=== PATIENT | female | born 1960 | race Caucasian/White ===

== ENCOUNTER 2024-08-26 07:05 | Inpatient (IN) | payer OTHER ==
[~2024-08-26] VITALS: Ht 167.6 cm; Wt 90.0 kg
--- NOTE | 2024-08-26 07:59 | ED.PDOC ---
General HPI Comments 64 year old female presents to the ED with a chief complaint of RT flank pain onset today around 03:00. Patient states she woke up today around 03:00 experiencing RT flank pain radiating to RT low back as well as 3 episodes of nausea/vomiting, urinary urgency. Patient has experienced similar pain in the past when she was passing kidney stone. Patient states she took Ativan around 04:00. PMHx of kidney stones. Denies chest pain, shortness of pain, dysuria, hematuria, diarrhea, constipation, fever, chills. No other symptoms or modifying factors present at this time. 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 Family History Family History: Reviewed,noncontributory to illness, No family hx of Cancer, No family hx of DM, No family hx of Heart stephie, No family hx of HTN, No family hx ofKidney stephie, No family hx of Liver stephie, No family hx of Lung stephie, No family hx of Stroke Social History Smoker: Non-Smoker Alcohol: Denies ETOH Use Drugs: Denies Drug Use Lives In: Home Constitutional: denies: chills, diaphoresis, fatigue, fever, malaise, sweats, weakness, others EENTM: denies: blurred vision, double vision, ear bleeding, ear discharge, ear drainage, ear pain, ear ringing, eye pain, eye redness, hearing loss, mouth pain, mouth swelling, nasal discharge, nose bleeding, nose congestion, nose pain, photophobia, tearing, throat pain, throat swelling, voice changes, others Respiratory: denies: cough, hemoptysis, orthopnea, SOB at rest, shortness of breath, SOB with excertion, stridor, wheezing, others Cardiovascular: denies: chest pain, dizzy spells, diaphoresis, Dyspnea on exertion, edema, irregular heart beat, left arm pain, lightheadedness, palpitations, PND, syncope, others Gastrointestinal: reports: nausea, vomiting; denies: abdomen distended, abdominal pain, blood streaked bowels, constipated, diarrhea, dysphagia, difficulty swallowing, hematemesis, melena, poor appetite, poor fluid intake, rectal bleeding, rectal pain, others Genitourinary: reports: flank pain, urgency; denies: abnormal vagina bleeding, burning, dyspareunia, dysuria, frequency, hematuria, incontinence, pain, , vagina discharge, others Neurological: denies: dizziness, fainting, headache, left sided numbness, left sided weakness, numbness, paresthesia, pre-existing deficit, right sided numbnes s, right sided weakness, seizure, speech problems, tingling, tremors, weakness, others Musculoskeletal: reports: back pain; denies: gout, joint pain, joint swelling, muscle pain, muscle stiffness, neck pain, others Integumetry: denies: bruises, change in color, change in hair/nails, dryness, laceration, lesions, lumps, rash, wounds, others Allergic/Immunocompromised: denies: Difficulty Healing, Frequent Infections, Hives, Itching, others Hematologic/Lymphatic: denies: anemia, blood clots, easy bleeding, easy bruising, swollen glands, others Endocrine: denies: excessive hunger, excessive sweating, excessive thirst, excessive urination, flushing, intolerance to cold, intolerance to heat, unexplained weight gain, unexplained weight loss, others Psychiatric: denies: anxiety, bipolar disorder, depression, hopeless, panic disorder, schizophrenia, sleepless, suicidal, others All Other Systems: Reviewed and Negative Physical Exam General Appearance: No Apparent Distress, Normal HEENT: Normal ENT Inspection, Pharynx Normal, TMs Normal Neck: Full Range of Motion, Non-Tender, Normal, Normal Inspection Respiratory: Chest Non-Tender, Lungs Clear, No Accessory Muscle Use, No Respiratory Distress, Normal Breath Sounds Cardiovascular: No Edema, No JVD, No Murmur, No Gallop, Normal Peripheral Pulses, Regular Rate/Rhythm Breast Exam: Deferred Gastrointestinal: No Organomegaly, Non Tender, No Pulsatile Mass, Normal Bowel Sounds, Soft Genitalia: Deferred Pelvic: Deferred Rectal: Deferred Extremities: No calf tenderness, Normal capillary refill, Normal inspection, Normal range of motion, Non-tender, No pedal edema Musculoskeletal : Apperance: Normal Neurologic: Alert, cmm inspector II-XII nml as Tested, No Motor Deficits, Normal Affect, Normal Mood, No Sensory Deficits Cerebellar Function: Normal Reflexes: Normal Skin: Dry, Normal Color, Warm Lymphatic: No Adenopathy Was a procedure done? Was a procedure done?: No Differential Diagnosis Kidney stone (Female): Appendicitis, Pancreatitis, Renal failure, Strain, Urinary obstruction, Urolithiasis Kidney stone (Male): N/A Penile/Scrotal: N/A Urinary Problem (Male): N/A Urinary Problem (Female): Pyelonephritis, Urinary retention X-Ray, Labs, Meds, VS Vital Signs Date Time Temp Pulse Resp B/P (MAP) Pulse Ox O2 Delivery O2 Flow Rate FiO2 08/26/24 09:30 65 17 98 Room Air* 0 21 08/26/24 09:30 98.1 65 17 153/63 (93) 98 98.1 08/26/24 07:27 52 08/26/24 07:25 98.1 68 19 147/62 (90) 98 98.1 Lab Test 08/26/24 08:17 08/26/24 07:24 Range/Units White Blood Count 11.2 H 4.4-10.8 10^3/uL Red Blood Count 4.40 4.0-5.20 10^6/uL Hemoglobin 13.0 12.2-16.2 g/dL Hematocrit 38.5 36.0-46.0 % Mean Corpuscular Volume 87.7 80.0-100.0 fL Mean Corpuscular Hemoglobin 29.7 28.0-32.0 pg Mean Corpuscular Hemoglobin Concent 33.9 32.0-36.0 g/dL Red Cell Distribution Width 14.5 H 11.8-14.3 % Platelet Count 276 140-450 10^3/uL Mean Platelet Volume 7.1 6.9-10.8 fL Neutrophils (%) (Auto) 84.4 H 37.0-80.0 % Lymphocytes (%) (Auto) 11.2 10.0-50.0 % Monocytes (%) (Auto) 4.1 0.0-12.0 % Eosinophils (%) (Auto) 0.1 0.0-7.0 % Basophils (%) (Auto) 0.2 0.0-2.0 % Neutrophils # (Auto) 9.5 H 1.6-8.6 10 ^3/uL Lymphocytes # (Auto) 1.3 0.4-5.4 10 ^3/uL Monocytes # (Auto) 0.5 0-1.3 10 ^3/uL Eosinophils # (Auto) 0 0-0.8 10 ^3/uL Basophils # (Auto) 0 0-0.2 10 ^3/uL Nucleated Red Blood Cells 0.0 % Sodium Level 137 136-145 mmol/L Potassium Level 3.4 L 3.5-5.1 mmol/L Chloride Level 104 98-107 mmol/L Carbon Dioxide Level 22 20-31 mmol/L Anion Gap 11 5-15 Blood Urea Nitrogen 16 9-23 mg/dL Creatinine 0.82 0.550-1.02 mg/dL Glomerular Filtration Rate Calc 80 >90 mL/min BUN/Creatinine Ratio 19.5 10.0-20.0 Serum Glucose 147 H 74-106 mg/dL Calcium Level 10.9 H 8.7-10.4 mg/dL Urine Color Colorless Yellow Urine Clarity Ex.turbid Clear Urine pH 8.0 5.0-9.0 Urine Specific [place] 1.013 1.001-1.035 Urine Protein Negative Negative Urine Ketones Negative Negative Urine Blood Trace H Negative /uL Urine Nitrite Negative Negative Urine Bilirubin Negative Negative Urine Urobilinogen Normal Negative mg/dL Urine Leukocyte Esterase 1+ Negative /uL Urine RBC 19 0 - 4 /hpf Urine Microscopic WBC 2 0-5 /HPF Urine Squamous Epithelial Cells Few <5 /hpf Urine Bacteria None seen None Seen /hpf Urine Glucose Normal Normal mg/dL Current Medications Medications (Trade) Dose Ordered Sig/Vu Route Start Time Stop Time Status Last Admin Ondansetron HCl (Zofran Po) 4 mg ONCE ONCE PO 08/26/24 09:45 08/26/24 09:46 DC 08/26/24 09:47 Acetaminophen/ Hydrocodone Bitart (Moran 5/325MG Tab) 1 tab ONCE ONCE PO 08/26/24 09:45 08/26/24 09:46 DC 08/26/24 09:47 Time of 1ST Reevaluation: 08:09 Reevaluation 1ST: Unchanged Patient Education/Counseling: Diagnosis, Treatment, Prognosis Family Education/Counseling: Diagnosis, Treatment, Prognosis Additional Information The following tests were ordered, and results were reviewed by me: EKG, BMP, CBC, UA Additional Information was gathered from interviewing the following independent historians: I discussed treatment and results with medical personnel and: Patient, Comprehensive systems review obtained and negative except for what is stated in the HPI. Departure 1 Departure Time of Disposition: 11:23 (Patient presented with abdominal pain that was concerning for possible appendicits, gastritis, cholecystitis, colitis, gastroenteritis, sbo, or orther possible surgical emergency. Data: 1. I ordered and reviewed the result of at least 3 labs including a CBC, BMP, and Urinalysis. 2. I independently interpreted the following tests: CT Abdoment and Pelvis is concerning for renal colic .Risk:This patient has a high risk of morbidity due to further diagnostic testing or treatment and may suffer from an acute abdominal process disorder. Workup reveals renal colic and patient should be admitted for further workup. and possible expert consultation. ) Impression: Primary Impression: Bilateral renal colic Additional Impression: Hydronephrosis Qualified Codes: N13.2 - Hydronephrosis with renal and ureteral calculous obstruction Disposition: ADMITTED INPATIENT Admit to: Med Surg Condition: Serious Critical Care Note Critical Care Time?: Yes Critical care comment: Intractable abdominal pain Authorized and Performed by: Isaak Garvey MD Total critical care time: Approximately 39 minutes Due to a high probability of clinically significant, life threatening deterioration, the patient required my highest level of preparedness to intervene emergently and I personally spent this critical care time directly and personally managing the patient. This critical care time included obtaining a history; examining the patient; pulse oximetry; ordering and review of studies; arranging urgent treatment with development of a management plan; evaluation of patient's response to treatment; frequent reassessment; and, discussions with other providers. This critical care time was performed to assess and manage the high probability of imminent, life-threatening deterioration that could result in multi-organ failure. It was exclusive of separately billable procedures and treating other patients and teaching time. Please see my other sections and the rest of the note for further information on patient assessment and treatment. Stability Stability form required: No I personally scribed for ISAAK GARVEY MD ([email or web address]) on 08/26/24 at 07:59. Electronically submitted by Annie De Leon ([email or web address]). I personally scribed for ISAAK GARVEY MD ([email or web address]) on 08/26/24 at 08:09. Electronically submitted by Annie De Leon ([email or web address]). ISAAK GARVEY MD Aug 26, 2024 07:59
[2024-08-26 08:43] LABS: Basophils # (auto) 0 10 ^3/uL (0-0.2); Basophils % (auto) 0.2 % (0.0-2.0); Eosinophils # (auto) 0 10 ^3/uL (0-0.8); Eosinophils % (auto) 0.1 % (0.0-7.0); Hematocrit 38.5 % (36.0-46.0); Lymphocytes # (auto) 1.3 10 ^3/uL (0.4-5.4); Lymphocytes % (auto) 11.2 % (10.0-50.0); Mean Corpuscular Hemoglobin 29.7 pg (28.0-32.0); Mean Corpuscular Hgb Conc. 33.9 g/dL (32.0-36.0); Mean Corpuscular Volume 87.7 fL (80.0-100.0); Monocytes # (auto) 0.5 10 ^3/uL (0-1.3); Monocytes % (auto) 4.1 % (0.0-12.0); Neutrophils # (auto) 9.5 10 ^3/uL (1.6-8.6); Neutrophils % (auto) 84.4 % (37.0-80.0); Platelet Count (auto) 276 10^3/uL (140-450); Red Cell Distribution Width 14.5 % (11.8-14.3); White Blood Cell 11.2 10^3/uL (4.4-10.8)
[2024-08-26 08:48] LABS: Chloride 104 mmol/L (98-107); Sodium 137 mmol/L (136-145)
[2024-08-26 08:49] LABS: Anion Gap 11 (5-15); Carbon Dioxide 22 mmol/L (20-31)
[2024-08-26 08:51] LABS: Calcium 10.9 mg/dL (8.7-10.4); Potassium 3.4 mmol/L (3.5-5.1)
[2024-08-26 08:54] LABS: Urine Bacteria None Seen /hpf (None Seen)
[2024-08-26 08:54] LABS: BUN/Creatinine Ratio 19.5 (10.0-20.0); Blood Urea Nitrogen 16 mg/dL (9-23)
[2024-08-26 08:55] LABS: Glucose 147 mg/dL (74-106)
[2024-08-26 09:04] LABS: Urine Blood TRACE /uL (Negative); Urine Clarity Ex.Turbid (Clear); Urine Color Colorless (Yellow); Urine Protein, UAD Negative (Negative); Urine Specific Gravity 1.013 (1.001-1.035); Urine Squamous Epithelial Cell FEW /hpf (<5); Urine Urobilinogen Normal (Negative); Urine WBC 2 /HPF (0-5)
[2024-08-26 09:30] VITALS: PULSE 65; RESP 17; O2SAT 98
[2024-08-26] MEDS: ONDANSETRON ODT 4 MG TAB PO ONE (09:47)
[2024-08-26] MEDS: HYDROcodone-ACET 5/325MG TAB PO ONE (09:47)
--- NOTE | 2024-08-26 10:25 | DVH ---
CT ABDOMEN AND PELVIS WITHOUT CONTRAST CLINICAL HISTORY: bilateral flank pain TECHNIQUE: Multiple contiguous axial images of the abdomen and pelvis without intravenous contrast. T he images were reformatted degenerate coronal and sagittal reconstructions. All CT scans at this medical facility are performed using dose modulation techniques as appropriate t o a performed exam including the following:Automated exposure control was utilized; adjustment of the MA and/or KV according to patient size; and use of iterative reconstruction technique. Radiation Dose Information: CT Dose: CTDI volume is 17 mGy. Dose-length product is 10 17 mGy*cm Comparison: None FINDINGS: Evaluation of the abdomen and pelvis is limited without intravenous contrast. There is a 5 mm calculus at the right ureterovesical junction. There is moderate right hydroureterone phrosis. There May also be a few additional small sub 5 mm calculi in the distal right ureter. There is a 2 mm calculus in the lower pole of the right kidney. There is moderate fat stranding surrounding the right kidney. There is a 1.3 x 1.9 cm staghorn like calculus in the lower pole collecting system of the left kidney . There is no left hydronephrosis. There is no left ureteral calculus or hydroureter. The liver, gallbladder, pancreas, adrenal glands, and spleen appear within normal limits. There is no gross evidence of abdominal lymphadenopathy. There is no free fluid or free air. The stomach grossly appears unremarkable. The small and large bowel loops demonstrate normal caliber and distribution. There are diverticula in the colon without evidence of acute diverticulitis. A no rmal appearing appendix is seen in the right lower quadrant abdomen. The abdominal aorta and IVC appear within normal limits. The bladder appears unremarkable for the degree of distention. Pelvic organ appears within normal clark its. There is no gross evidence of a pelvic mass. There is no free fluid collection. Lung bases are clear. There is no acute osseous abnormality. IMPRESSION: 1. There is a 5 mm calculus at the right ureterovesical junction. There is moderate right hydroureter onephrosis. 2. There May also be a few additional small sub 5 mm calculi in the distal right ureter. 3. There is a 1.3 by 1.9 cm staghorn like calculus in the lower pole collecting system of the left ki dney. There is no left hydronephrosis. 4. Colonic diverticulosis. HS:Y
[2024-08-26] MEDS: KETOROLAC TROMETH 30 MG/ML 1ML VIAL IV ONE (12:00)
[2024-08-26] MEDS: TAMSULOSIN HYDROCHLORIDE 0.4 MG CAP PO ONE (12:00)
[2024-08-26] MEDS: SODIUM CHLORIDE 0.9% 1,000 ML IV ONE (12:00)
--- NOTE | 2024-08-26 13:16 | DVHHP2 ---
History of Present Illness Reason for Visit: Right flank pain History of Present Illness 64-year-old female past medical history kidney stones surgical history hysterectomy, knee replacement chief complaint patient states she has been having right flank pain history o'clock this morning. She states she woke up around that time in the pain was in her right lower abdomen and radiated to her flank. She felt it might be her kidney stone because she had episodes like this in the past. She also had some nausea and vomiting urinary urgency there was no blood in her urine. She states she has been dealing with a kidney stone problems since 1988. She denies any chest pain no shortness with the breath no fever. When evaluating patient's labs and imaging from the ED Flomax was given Toradol normal saline and Zofran white count was 11.2 potassium was 3.4 glucose was [address] scan of the abdomen pelvis shows 5 mm calculus in the right kidney with mild hydronephrosis in the left kidney small left staghorn kidney stone without hydro and diverticulosis. With these findings we will admit and ask for Urology evaluation Past Medical History See HPI above Past Surgical History See HPI above Family History Reviewed, non-contributory to the management of this case. Past Social History The patient lives at home, denies smoking, alcohol or illicit drugs abuse. Review of Systems Constitutional: No: Fever, Chills, Sweats, Weakness, Malaise, Other Eyes: No: Pain, Vision change, Conjunctivae inflammation, Eyelid inflammation, Other, Redness ENT: No: Ear pain, Ear discharge, Nose pain, Nose discharge, Nose congestion, Mouth pain, Mouth swelling, Throat pain, Throat swelling, Other Respiratory: No: Cough, Dry, Shortness of breath, SOB with excertion, Wheezing, Hemoptysis, Pleuritic Pain, Sputum, Wheezing, Other Cardiovascular: No: Chest Pain, Palpitations, Orthopnea, Paroxysmal Noc. Dyspnea, Edema, Lt Headedness, Other Gastrointestinal: Abdominal Pain; No: Nausea, Vomiting, Diarrhea, Constipation, Melena, Hematochezia, Other Genitourinary: Dysuria, Frequency; No Incontinence, No Hematuria, No Retention, No Other Musculoskeletal: No: other, neck pain, shoulder pain, arm pain, back pain, hand pain, leg pain, foot pain Skin: No: Rash, Lesions, Jaundice, Bruising, Other Neurological: No: Weakness, Numbness, Incoordination, Change in speech, Confusion, Seizures, Other Allergies: Coded Allergies: NO KNOWN ALLERGIES (Unverified , 08/26/24) Exam Vital Signs Vital Signs Date Time Temp Pulse Resp B/P (MAP) Pulse Ox O2 Delivery O2 Flow Rate FiO2 08/26/24 12:04 97.8 67 18 151/73 (99) 95 97.8 08/26/24 09:30 Room Air* 0 21 General Appearance: Alert, Oriented X3, Cooperative, No acute distress HEENT: Atraumatic, PERRLA, EOMI, Mucous membr. moist/pink Respiratory: Clear to auscultation, Normal air movement Cardiovascular: Regular rate, Normal S1, Normal S2, No murmurs Abdominal: Normal bowel sounds, Soft, No tenderness, No hepatospenomegaly, No masses, Other (cVA tenderness) Extremities: No clubbing, No cyanosis, No edema, Normal pulses, No tendern ess/swelling Skin: No rashes, No breakdown, No significant lesion Neuro: Normal gait, Normal speech, Strength at 5/5 X4 ext, Normal tone, Sensation intact, Cranial nerves 3-12 NL Psych/Mental Status: Mental status NL, Mood NL Labs/Xrays CT scan abdomen pelvis shows 5 mm calculus in the ureteral junction mild right hydronephrosis distal 5 mm stone on the left side 1.3 staghorn calculus no hydronephrosis and diverticulosis I reviewed labs, imaging CT scan abdomen pelvis, EKG and all diagnostic studies on this patient from ED records and the medical chart Labs Test 08/26/24 08:17 08/26/24 07:24 Range/Units White Blood Count 11.2 H 4.4-10.8 10^3/uL Red Blood Count 4.40 4.0-5.20 10^6/uL Hemoglobin 13.0 12.2-16.2 g/dL Hematocrit 38.5 36.0-46.0 % Mean Corpuscular Volume 87.7 80.0-100.0 fL Mean Corpuscular Hemoglobin 29.7 28.0-32.0 pg Mean Corpuscular Hemoglobin Concent 33.9 32.0-36.0 g/dL Red Cell Distribution Width 14.5 H 11.8-14.3 % Platelet Count 276 140-450 10^3/uL Mean Platelet Volume 7.1 6.9-10.8 fL Neutrophils (%) (Auto) 84.4 H 37.0-80.0 % Lymphocytes (%) (Auto) 11.2 10.0-50.0 % Monocytes (%) (Auto) 4.1 0.0-12.0 % Eosinophils (%) (Auto) 0.1 0.0-7.0 % Basophils (%) (Auto) 0.2 0.0-2.0 % Neutrophils # (Auto) 9.5 H 1.6-8.6 10 ^3/uL Lymphocytes # (Auto) 1.3 0.4-5.4 10 ^3/uL Monocytes # (Auto) 0.5 0-1.3 10 ^3/uL Eosinophils # (Auto) 0 0-0.8 10 ^3/uL Basophils # (Auto) 0 0-0.2 10 ^3/uL Nucleated Red Blood Cells 0.0 % Sodium Level 137 136-145 mmol/L Potassium Level 3.4 L 3.5-5.1 mmol/L Chloride Level 104 98-107 mmol/L Carbon Dioxide Level 22 20-31 mmol/L Anion Gap 11 5-15 Blood Urea Nitrogen 16 9-23 mg/dL Creatinine 0.82 0.550-1.02 mg/dL Glomerular Filtration Rate Calc 80 >90 mL/min BUN/Creatinine Ratio 19.5 10.0-20.0 Serum Glucose 147 H 74-106 mg/dL Calcium Level 10.9 H 8.7-10.4 mg/dL Urine Color Colorless Yellow Urine Clarity Ex.turbid Clear Urine pH 8.0 5.0-9.0 Urine Specific [place] 1.013 1.001-1.035 Urine Protein Negative Negative Urine Ketones Negative Negative Urine Blood Trace H Negative /uL Urine Nitrite Negative Negative Urine Bilirubin Negative Negative Urine Urobilinogen Normal Negative mg/dL Urine Leukocyte Esterase 1+ Negative /uL Urine RBC 19 0 - 4 /hpf Urine Microscopic WBC 2 0-5 /HPF Urine Squamous Epithelial Cells Few <5 /hpf Urine Bacteria None seen None Seen /hpf Urine Glucose Normal Normal mg/dL Assessment/Plan Assessment/Plan acute bilateral kidney stones with mild hydronephrosis on the right found on ct scan Ordered Flomax Ordered Toradol for 3 days Continue IV fluids Ordered morphine as needed for pain Ordered Zofran as needed for nausea Consulted urology follow-up recs Strict I/O's Ordered ceftriaxone for now acute pyelonephritis found on ua bacteria leuks ordered culture fu results ordered ceftriaxone iv acute leukocytosis likely in setting acute cystitis with kidney stones ordered urine culture acute hypokalemia repleted k fu k in am FEN/PPx GI prophylaxis patient eating No DVT prophylaxis since patient is ambulatory Diet IV fluids Plan admit to medicine urology evaluation Plan discussed with: Patient Date of Service: Aug 26, 2024 Billing Provider: ELROY TAN DNP Common Visit Codes: [id number] INP/OBS CARE (HIGH) ELROY TAN DNP Aug 26, 2024 13:16
--- NOTE | 2024-08-26 14:13 | ECG ---
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
[2024-08-26] MEDS ORDERED: ONDANSETRON HCL 4 MG/2 ML VIAL IV PRN (14:15)
[2024-08-26] MEDS ORDERED: NITROGLYCERIN 0.4 MG SL TAB SL PRN (14:15)
[2024-08-26] MEDS ORDERED: DOCUSATE SOD 100 MG CAP PO PRN (14:15)
[2024-08-26] MEDS ORDERED: MORPHINE SULFATE INJ 2 MG/ml SYRG IV PRN (14:15)
[2024-08-26] MEDS: cefTRIAXone 1GM/50ML D5W 50 ML IV ONE (15:43)
[2024-08-26] MEDS: SODIUM CHLORIDE 0.9% 1,000 ML IV SCH (15:44)
--- NOTE | 2024-08-26 16:01 | DVHINCON2 ---
Date of service: Aug 26, 2024 Referring Physician hospitalist Reason for Consultation ureteral stone History of Present Illness History Source: Patient, RN Notes, MD Notes Exam Limitations: No limitations HPI 64 year old female presents to the ED with a chief complaint of RT flank pain onset today around 03:00. Patient states she woke up today around 03:00 experiencing RT flank pain radiating to RT low back as well as 3 episodes of nausea/vomiting, urinary urgency. Patient has experienced similar pain in the past when she was passing kidney stone. Patient states she took Ativan around 04:00. PMHx of kidney stones. Denies chest pain, shortness of pain, dysuria, hematuria, diarrhea, constipation, fever, chills. No other symptoms or modifying factors present at this time. H&P Exam Vital Signs Vital Signs Date Time Temp Pulse Resp B/P (MAP) Pulse Ox O2 Delivery O2 Flow Rate FiO2 08/26/24 12:04 97.8 67 18 151/73 (99) 95 97.8 08/26/24 09:30 Room Air* 0 21 General Appeara: Well developed, Well nourished, Normal Appearance Pulmonary/Respiratory: Normal inspection, Normal breath sounds, Chest non- tender, Lungs clear Cardiovascular/Chest: Normal inspection, Regular rate, Normal Rhythm Abdominal Exam: Normal bowel sounds, Soft, No tenderness, No hepatospenomegaly, No masses [employer] Exam: Normal hearing, Normal speech, PERRL Neuro/Mental St: Alert, Oriented Appearance: Appropriate appearance, Appropriate insight Eye contact/ Speech: Cooperative, Good eye contact, Normal speech Skin Exam: Normal inspection, Normal color, Warm/dry Labs/Xrays [place] [address] Ph: [phone] DIAGNOSTIC IMAGING Diagnostic Imaging Report : [id number] Signed PATIENT: FRANCHESKA SPENCER MACCT: [id number] UNIT: [id number] : 1960 LOC: ER ROOM / BED: / AGE / SEX: 64 / F ADM STATUS: REG ER SERVICE [id number] ORDERING PHYSICIAN: ISAAK MANRIQUEZ MD PROCEDURE(s): ABPL - CT AB PEL WO CON-NO ORAL OR IV REASON: bilateral flank pain ORDER NUMBER(s): [id number], ACCESSION NUMBER(s): [id number] CT ABDOMEN AND PELVIS WITHOUT CONTRAST CLINICAL HISTORY: bilateral flank pain TECHNIQUE: Multiple contiguous axial images of the abdomen and pelvis without intravenous contrast. The images were reformatted degenerate coronal and sagittal reconstructions. All CT scans at this medical facility are performed using dose modulation techniques as appropriate to a performed exam including the following:Automated exposure control was utilized; adjustment of the MA and/or KV according to patient size; and use of iterative reconstruction technique. Radiation Dose Information: CT Dose: CTDI volume is 17 mGy. Dose-length product is 10 17 mGy*cm Comparison: None FINDINGS: Evaluation of the abdomen and pelvis is limited without intravenous contrast. There is a 5 mm calculus at the right ureterovesical junction. There is moderate right hydroureteronephrosis. There May also be a few additional small sub 5 mm calculi in the distal right ureter. There is a 2 mm calculus in the lower pole of the right kidney. There is moderate fat stranding surrounding the right kidney. There is a 1.3 x 1.9 cm staghorn like calculus in the lower pole collecting system of the left kidney. There is no left hydronephrosis. There is no left ureteral calculus or hydroureter. The liver, gallbladder, pancreas, adrenal glands, and spleen appear within normal limits. There is no gross evidence of abdominal lymphadenopathy. There is no free fluid or free air. The stomach grossly appears unremarkable. The small and large bowel loops demonstrate normal caliber and distribution. There are diverticula in the colon without evidence of acute diverticulitis. A normal appearing appendix is seen in the right lower quadrant abdomen. The abdominal aorta and IVC appear within normal limits. The bladder appears unremarkable for the degree of distention. Pelvic organ appears within normal limits. There is no gross evidence of a pelvic mass. There is no free fluid collection. Lung bases are clear. There is no acute osseous abnormality. IMPRESSION: 1. There is a 5 mm calculus at the right ureterovesical junction. There is moderate right hydroureteronephrosis. 2. There May also be a few additional small sub 5 mm calculi in the distal right ureter. 3. There is a 1.3 by 1.9 cm staghorn like calculus in the lower pole collecting system of the left kidney. There is no left hydronephrosis. 4. Colonic diverticulosis. HS:Y ATED BY: NISH BRICEÑO MD DICTATED DATE/TIME: 08/26/24 1022 SIGNED BY: NISH BRICEÑO MD SIGNED DATE/TIME: 08/26/24 1022 CC: Labs Test 08/26/24 08:17 08/26/24 07:24 Range/Units White Blood Count 11.2 H 4.4-10.8 10^3/uL Red Blood Count 4.40 4.0-5.20 10^6/uL Hemoglobin 13.0 12.2-16.2 g/dL Hematocrit 38.5 36.0-46.0 % Mean Corpuscular Volume 87.7 80.0-100.0 fL Mean Corpuscular Hemoglobin 29.7 28.0-32.0 pg Mean Corpuscular Hemoglobin Concent 33.9 32.0-36.0 g/dL Red Cell Distribution Width 14.5 H 11.8-14.3 % Platelet Count 276 140-450 10^3/uL Mean Platelet Volume 7.1 6.9-10.8 fL Neutrophils (%) (Auto) 84.4 H 37.0-80.0 % Lymphocytes (%) (Auto) 11.2 10.0-50.0 % Monocytes (%) (Auto) 4.1 0.0-12.0 % Eosinophils (%) (Auto) 0.1 0.0-7.0 % Basophils (%) (Auto) 0.2 0.0-2.0 % Neutrophils # (Auto) 9.5 H 1.6-8.6 10 ^3/uL Lymphocytes # (Auto) 1.3 0.4-5.4 10 ^3/uL Monocytes # (Auto) 0.5 0-1.3 10 ^3/uL Eosinophils # (Auto) 0 0-0.8 10 ^3/uL Basophils # (Auto) 0 0-0.2 10 ^3/uL Nucleated Red Blood Cells 0.0 % Sodium Level 137 136-145 mmol/L Potassium Level 3.4 L 3.5-5.1 mmol/L Chloride Level 104 98-107 mmol/L Carbon Dioxide Level 22 20-31 mmol/L Anion Gap 11 5-15 Blood Urea Nitrogen 16 9-23 mg/dL Creatinine 0.82 0.550-1.02 mg/dL Glomerular Filtration Rate Calc 80 >90 mL/min BUN/Creatinine Ratio 19.5 10.0-20.0 Serum Glucose 147 H 74-106 mg/dL Calcium Level 10.9 H 8.7-10.4 mg/dL Urine Color Colorless Yellow Urine Clarity Ex.turbid Clear Urine pH 8.0 5.0-9.0 Urine Specific [place] 1.013 1.001-1.035 Urine Protein Negative Negative Urine Ketones Negative Negative Urine Blood Trace H Negative /uL Urine Nitrite Negative Negative Urine Bilirubin Negative Negative Urine Urobilinogen Normal Negative mg/dL Urine Leukocyte Esterase 1+ Negative /uL Urine RBC 19 0 - 4 /hpf Urine Microscopic WBC 2 0-5 /HPF Urine Squamous Epithelial Cells Few <5 /hpf Urine Bacteria None seen None Seen /hpf Urine Glucose Normal Normal mg/dL Assessment/Plan Problem List: (1) Hydronephrosis with obstructing calculus (2) Hydronephrosis (3) Bilateral renal colic Plan expulsive measures aggressive fluids prn pain meds strain urine for stones renal US tomorrow monitor renal function Plan discussed with: Patient, Other TED [employer] TECHNICIAN Aug 26, 2024 16:00
[2024-08-26] MEDS: MANNITOL FTV 25% 12.5 GM/50 ML 50 ML IV ONE (17:24)
[2024-08-26] MEDS: KETOROLAC TROMETH 30 MG/ML 1ML VIAL ONE (17:25)
[2024-08-26 19:06] VITALS: BP 160/107; PULSE 93; RESP 18; TEMP 98.2; O2SAT 96
[2024-08-26] MEDS: TAMSULOSIN HYDROCHLORIDE 0.4 MG CAP PO SCH (20:47)
[2024-08-27] VITALS (8 sets, daily range): BP systolic 105–133; BP diastolic 52–68; PULSE 88–103; RESP 17–20; TEMP 98–100; O2SAT 91–95
[2024-08-27] MEDS: KETOROLAC TROMETH 30 MG/ML 1ML VIAL IV PRN (01:07)
[2024-08-27 06:53] LABS: Alanine Aminotransferase 17 U/L (7-40); Alkaline Phosphatase 69 U/L (46-116); Chloride 107 mmol/L (98-107); Potassium 3.6 mmol/L (3.5-5.1); Sodium 140 mmol/L (136-145)
[2024-08-27 06:59] LABS: Basophils # (auto) 0 10 ^3/uL (0-0.2); Basophils % (auto) 0.4 % (0.0-2.0); Eosinophils # (auto) 0.1 10 ^3/uL (0-0.8); Eosinophils % (auto) 1.2 % (0.0-7.0); Hematocrit 31.9 % (36.0-46.0); Hemoglobin 11.1 g/dL (12.2-16.2); Lymphocytes # (auto) 1.6 10 ^3/uL (0.4-5.4); Lymphocytes % (auto) 21.7 % (10.0-50.0); Mean Corpuscular Hemoglobin 30.7 pg (28.0-32.0); Mean Corpuscular Hgb Conc. 34.8 g/dL (32.0-36.0); Mean Corpuscular Volume 88.1 fL (80.0-100.0); Monocytes # (auto) 0.6 10 ^3/uL (0-1.3); Neutrophils # (auto) 4.9 10 ^3/uL (1.6-8.6); Neutrophils % (auto) 68.7 % (37.0-80.0); Platelet Count (auto) 193 10^3/uL (140-450); Red Blood Cells 3.61 10^6/uL (4.0-5.20); Red Cell Distribution Width 14.5 % (11.8-14.3); White Blood Cell 7.2 10^3/uL (4.4-10.8)
[2024-08-27 07:44] LABS: Anion Gap 8 (5-15); Carbon Dioxide 25 mmol/L (20-31)
[2024-08-27 07:45] LABS: Albumin 3.8 g/dL (3.2-4.8); Aspartate Aminotransferase 14 U/L (13-40); BUN/Creatinine Ratio 12.1 (10.0-20.0); Bilirubin, Total 0.6 mg/dL (0.2-1.0); Blood Urea Nitrogen 13 mg/dL (9-23); Glucose 101 mg/dL (74-106); Total Protein 5.5 g/dL (5.7-8.2)
--- NOTE | 2024-08-27 08:01 | DVHPNRES ---
Progress Note Objective vital signs Vital Sign Date Time Temp Pulse Resp B/P (MAP) Pulse Ox O2 Delivery O2 Flow Rate FiO2 08/27/24 04:50 98.2 94 17 105/52 (69) 95 98.2 08/27/24 00:20 Room Air* 0 21 Total Intake and Output 08/26/24 08/26/24 08/27/24 15:00 23:00 07:00 Intake Total 1000 ml 50 ml 150 ml Balance 1000 ml 50 ml 150 ml medications Current Medications Medications Dose Ordered Sig/Vu Route Start Time Stop Time Status Last Admin Dose Admin Tamsulosin HCl 0.4 mg QPM PO 08/26/24 18:00 08/26/24 20:47 0.4 MG Ceftriaxone Sodium 50 ml @ 100 mls/hr DAILY@09 IV 08/27/24 09:00 Sodium Chloride 1,000 ml @ 120 mls/hr Q8H20M IV 08/26/24 14:15 08/27/24 01:09 120 MLS/HR Ondansetron HCl 4 mg Q4HP PRN IV 08/26/24 14:15 Docusate Sodium 100 mg BIDPRN PRN PO 08/26/24 14:15 Morphine Sulfate 2 mg Q4HPRN PRN IV 08/26/24 14:15 Ketorolac Tromethamine 15 mg Q6HPRN PRN IV 08/26/24 17:30 08/31/24 17:29 08/27/24 01:07 15 MG laboratory and microbiology Laboratory Tests 08/27/24 05:45 Test 08/27/24 05:45 Range/Units Serum Glucose 101 74-106 mg/dL My Orders My Orders Orders - CALE JOHNS RESDIJOSSE Procedure Category Date Status Time Drug Screen LAB 08/27/24 Logged 07:55 PTPTT LAB 08/27/24 Logged 07:55 Magnesium LAB 08/27/24 Logged 07:55 Strain All Urine For [facility] 08/27/24 In Process Stones 07:58 Kidney US 08/27/24 Logged 07:58 Magnesium LAB 08/27/24 Verified 08:00 CALE JOHNS RESDIENT Aug 27, 2024 08:01
[2024-08-27] MEDS: cefTRIAXone 1GM/50ML D5W 50 ML IV SCH (08:33)
[2024-08-27 09:24] LABS: Partial Thromboplastin Time 26.9 SEC (24.5-34.5); Prothrombin Time 10.6 sec (9.3-11.8)
--- NOTE | 2024-08-27 09:33 | DVH ---
US KIDNEY HISTORY: Kindney stone with Hydronephrosis COMPARISON: 08/26/24 TECHNIQUE: Transverse and longitudinal grayscale and color Doppler images were obtained of the kidney s and bladder. FINDINGS: Right kidney: Size: 12.8 cm Cortical thickness: Normal Echogenicity: Normal Stones: Yes Masses: None Hydronephrosis: None Ureters: Not well visualized. Other: None Left kidney: Size: 13.0 cm Cortical thickness: Normal Echogenicity: Normal Stones: Yes Masses: None Hydronephrosis: Yes Ureters: Not well visualized. Other: None Bladder: Ureteral jets are seen. Other: None. IMPRESSION: Moderate right hydroureteronephrosis. Bilateral kidney stones.
[2024-08-27] MEDS ORDERED: PANT40TA2 PO ×2 (14:50→17:04)
[2024-08-27] MEDS ORDERED: TAMS-35 PO ×2 (14:50→17:04)
[2024-08-27] MEDS ORDERED: IBUP1TAB5 PO (14:50)
[2024-08-27 15:40] LABS: Amphetamine Screen, Urine Neg (NEGATIVE)
[2024-08-27 15:41] LABS: Barbiturate Scree,Urine Neg (NEGATIVE); Benzodiazephine Screen, Urine Neg (NEGATIVE); Cannabinoid Screen, Urine Neg (NEGATIVE); Cocaine Screen, Urine Neg (NEGATIVE); Opiate Scree,Urine Neg (NEGATIVE); Phencyclidine Screen, Urine Neg (NEGATIVE)
--- NOTE | 2024-08-27 15:43 | DVHDSRES ---
Discharge Summary Date of Admission Resident Creating Document: CALE JOHNS RESDIENT Aug 26, 2024 at 14:10 Date of Discharge: Aug 27, 2024 Admitting Diagnosis Renal stone Wounds: Labs/Diagnostic Data: Laboratory Results Test 08/27/24 08:45 08/27/24 05:45 08/26/24 07:24 White Blood Count 7.2 10^3/uL (4.4-10.8) Red Blood Count 3.61 10^6/uL (4.0-5.20) Hemoglobin 11.1 g/dL (12.2-16.2) Hematocrit 31.9 % (36.0-46.0) Mean Corpuscular Volume 88.1 fL (80.0-100.0) Mean Corpuscular Hemoglobin 30.7 pg (28.0-32.0) Mean Corpuscular Hemoglobin Concent 34.8 g/dL (32.0-36.0) Red Cell Distribution Width 14.5 % (11.8-14.3) Platelet Count 193 10^3/uL (140-450) Mean Platelet Volume 7.3 fL (6.9-10.8) Neutrophils (%) (Auto) 68.7 % (37.0-80.0) Lymphocytes (%) (Auto) 21.7 % (10.0-50.0) Monocytes (%) (Auto) 8.0 % (0.0-12.0) Eosinophils (%) (Auto) 1.2 % (0.0-7.0) Basophils (%) (Auto) 0.4 % (0.0-2.0) Neutrophils # (Auto) 4.9 10 ^3/uL (1.6-8.6) Lymphocytes # (Auto) 1.6 10 ^3/uL (0.4-5.4) Monocytes # (Auto) 0.6 10 ^3/uL (0-1.3) Eosinophils # (Auto) 0.1 10 ^3/uL (0-0.8) Basophils # (Auto) 0 10 ^3/uL (0-0.2) Nucleated Red Blood Cells 0.0 % Prothrombin Time 10.6 sec (9.3-11.8) Prothrombin Time INR 1.00 (0.9-1.15) Activated Partial Thromboplast Time 26.9 SEC (24.5-34.5) Sodium Level 140 mmol/L (136-145) Potassium Level 3.6 mmol/L (3.5-5.1) Chloride Level 107 mmol/L (98-107) Carbon Dioxide Level 25 mmol/L (20-31) Anion Gap 8 (5-15) Blood Urea Nitrogen 13 mg/dL (9-23) Creatinine 1.07 mg/dL (0.550-1.02) Glomerular Filtration Rate Calc 58 mL/min (>90) BUN/Creatinine Ratio 12.1 (10.0-20.0) Serum Glucose 101 mg/dL (74-106) Calcium Level 10.0 mg/dL (8.7-10.4) Magnesium Level 2.0 mg/dL (1.6-2.6) Total Bilirubin 0.6 mg/dL (0.2-1.0) Aspartate Amino Transferase (AST) 14 U/L (13-40) Alanine Aminotransferase (ALT) 17 U/L (7-40) Alkaline Phosphatase 69 U/L (46-116) Total Protein 5.5 g/dL (5.7-8.2) Albumin 3.8 g/dL (3.2-4.8) Urine Color Colorless (Yellow) Urine Clarity Ex.turbid (Clear) Urine pH 8.0 (5.0-9.0) Urine Specific [place] 1.013 (1.001-1.035) Urine Protein Negative (Negative) Urine Ketones Negative (Negative) Urine Blood Trace /uL (Negative) Urine Nitrite Negative (Negative) Urine Bilirubin Negative (Negative) Urine Urobilinogen Normal mg/dL (Negative) Urine Leukocyte Esterase 1+ /uL (Negative) Urine RBC 19 /hpf (0 - 4) Urine Microscopic WBC 2 /HPF (0-5) Urine Squamous Epithelial Cells Few /hpf (<5) Urine Bacteria None seen /hpf (None Seen) Urine Glucose Normal mg/dL (Normal) Other Laboratory Tests 08/27/24 05:45 Brief Hx & Hospital Course: 64-year-old female past medical history kidney stones surgical history hysterectomy, knee replacement chief complaint patient states she has been having right flank pain history o'clock this morning. She states she woke up around that time in the pain was in her right lower abdomen and radiated to her flank. She felt it might be her kidney stone because she had episodes like this in the past. She also had some nausea and vomiting urinary urgency there was no blood in her urine. She states she has been dealing with a kidney stone problems since 1988. She denies any chest pain no shortness with the breath no fever. When evaluating patient's labs and imaging from the ED Flomax was given Toradol normal saline and Zofran white count was 11.2 potassium was 3.4 glucose was [address] scan of the abdomen pelvis shows 5 mm calculus in the right kidney with mild hydronephrosis in the left kidney small left staghorn kidney stone without hydro and diverticulosis. With these findings we will admit and ask for Urology evaluation. Hospital course: Urology evaluated the patient, recommended medical management and pain control. Patient was given IV fluid, ketorolac, and tamsulosin. On follow up ultrasound showed moderate right hydronephrosis, with bilateral kidney stone, Urology recommended outpatient follow up. On 08/27/2024, the patient was feeling better since admission, and did not have any pain and vomiting. Discharge plan discussed with the. The patient was discharged home. Discharge plan: Tablet ibuprofen 600 mg b.i.d. for 5 days Tablet Zofran for vomiting PRN for 5 days Tablet Flomax 0.4 mg daily for 5 days. Protonix 40 mg daily for 5 days Follow up with the Urology on outpatient basis. Follow up with the PCP within 1 week of the discharge. Consults/Reason for consult Urology: Renal stone Operations or Procedures [place] [address] Ph: [phone] DIAGNOSTIC IMAGING Diagnostic Imaging Report : [id number] Signed PATIENT: FRANCHESKA SPENCER MACCT: [id number] UNIT: [id number] : 1960 LOC: CENTRAL ROOM / BED: [facility] / A AGE / SEX: 64 / F ADM STATUS: ADM IN SERVICE 0758 ORDERING PHYSICIAN: CALE JOHNS PROCEDURE(s): KIDUS - KIDNEY REASON: Kindney stone with Hydronephrosis ORDER NUMBER(s): [id number], ACCESSION NUMBER(s): [id number] KIDNEY HISTORY: Kindney stone with Hydronephrosis COMPARISON: 08/26/24 TECHNIQUE: Transverse and longitudinal grayscale and color Doppler images were obtained of the kidneys and bladder. FINDINGS: Right kidney: Size: 12.8 cm Cortical thickness: Normal Echogenicity: Normal Stones: Yes Masses: None Hydronephrosis: None Ureters: Not well visualized. Other: None Left kidney: Size: 13.0 cm Cortical thickness: Normal Echogenicity: Normal Stones: Yes Masses: None Hydronephrosis: Yes Ureters: Not well visualized. Other: None Bladder: Ureteral jets are seen. Other: None. IMPRESSION: Moderate right hydroureteronephrosis. Bilateral kidney stones. ATED BY: WILD HERNANDEZ MD DICTATED DATE/TIME: 08/27/24929 SIGNED BY: WILD HERNANDEZ MD SIGNED DATE/TIME: 08/27/24929 CC: Condition at Discharge: Stable Final Diagnosis/Problems List Flank pain, due to renal stone, at ureteropelvic junction of right-side Bilateral renal stone leading to hydronephrosis Moderate right-sided hydronephrosis Ruled out pyelonephritis/cystitis Hypokalemia History of multiple renal stone Discharge Disposition: Home Discharge Instruct/Medications Diet: Cardiac 2g Na,low cholest Activity: No Restrictions, As Tolerated Follow Up/Referral: Follow up with the PCP within 1 week of the discharge. Follow up with the Urology on outpatient basis for follow up of hydronephrosis/renal stone. Medications: Tablet ibuprofen 600 mg b.i.d. p.r.n. for pain for 5 days. Tablet acetaminophen 625 mg t.i.d. p.r.n. for pain for 5 days. Tablet Zofran 10 mg b.i.d. p.r.n. for nausea/vomiting for 5 days. Tablet Flomax 0.5 mg daily for 5 days. Discharge Statement: "Patient was advised to return to the ER or call 911 if any headaches, dizziness, shortness of breath, chest pain, abdominal pain, bleeding, fevers, or worsening of medical condition. Patient was counseled about treatment plan, medications, possible side effects, patientverbalized understanding. All questions were answered to the best of my ability. This discharge took greater then 30 minutes in planning, reviewing documentation, counseling the patient, and discussing with other team members." ASSESSMENT ASSESSMENT Assessment Renal stone leading to hydronephrosis CALE JOHNS RESDIENT Aug 27, 2024 15:43
[2024-08-27] MEDS ORDERED: ZOFR4T PO ×2 (15:45→17:04)
[2024-08-27] MEDS ORDERED: IBUP-1454 PO (17:04)
== END 2024-08-27 18:25 | disposition home or self-care (01) | DRG 694 ==
LOC: ER 07:05 → OVERFLOW 14:10 → CENTRAL 23:25
PROVIDERS: ADMIT Student in an Organized Health Care Education/Training Program; ATTEND Emergency Medicine
DX: N13.2 Hydronephrosis with renal and ureteral calculous obstruction (principal); E87.6 Hypokalemia; D72.829 Elevated white blood cell count, unspecified; K57.30 Diverticulosis of large intestine without perforation or abscess without bleeding; Z96.659 Presence of unspecified artificial knee joint; Z90.710 Acquired absence of both cervix and uterus; Z87.442 Personal history of urinary calculi
CPT/HCPCS: 36415; 74176; 76775; 80048; 80053; 80307; 81001; 83735; 85025; 85610; 85730; 93005; 96365; 96375; 99291; G0378; J1885; Q0162